=== PATIENT | female | born 1995 ===

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

== ENCOUNTER 2018-02-17 20:08 | Emergency (ER) | payer OTHER ==
[2018-02-17 20:08] VITALS: BMI 47.2
[2018-02-17 20:19] VITALS: PULSE 78
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
[2018-02-17 21:35] VITALS: BP 122/71; RESP 18; TEMP 98; O2SAT 100
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
--- NOTE | 2018-02-18 10:14 | RAD ---
Date of service: 02/17/2018 PROCEDURE: Cervical Spine Radiographs. HISTORY: Pain. COMPARISON: None. FINDINGS: BONES: The vertebral bodies are maintained in height. Normal alignment is maintained. There is mild straightening of the normal lordotic curvature indicating possible muscular spasm. The atlantoaxial articulation is intact. Radiographic evaluation of the odontoid process is limited though no gross abnormality is identified. DISC SPACES: Normal. SOFT TISSUES: Normal. No prevertebral soft tissue swelling. OTHER FINDINGS: None. IMPRESSION: No evidence of fracture or dislocation. Possible muscular spasm. Limited as above.
== END 2018-02-17 21:34 | disposition home or self-care (01) ==
LOC: H.ER 20:08
DX: S16.1XXA Strain of muscle, fascia and tendon at neck level, initial encounter (principal); S39.012A Strain of muscle, fascia and tendon of lower back, initial encounter; V43.52XA Car driver injured in collision with other type car in traffic accident, initial encounter; Y92.410 Unspecified street and highway as the place of occurrence of the external cause